=== PATIENT | male | born 1955 | race Caucasian/White ===

== ENCOUNTER 2020-02-27 05:34 | Day surgery (SDC) | payer MEDICARE, BC ==
[2020-02-20 15:05] LABS: BASOPHILS % (AUTO) 0.7 % (0-1); EOSINOPHILS # (AUTO) 0.1 X10'3 (0-0.9); EOSINOPHILS % (AUTO) 2.6 % (0-6); LYMPHOCYTES # (AUTO) 1.2 X10'3 (1.1-4.8); LYMPHOCYTES % (AUTO) 21.8 % (21-51); MEAN CORPUSCULAR HEMOGLOBIN 32.4 PG (27.0-31.0); MEAN CORPUSCULAR HGB CONC 34.6 g/dL (33.0-36.5); MEAN CORPUSCULAR VOLUME 93.7 FL (78-98); MEAN PLATELET VOLUME 5.8 FL (7.4-10.4); MONOCYTES # (AUTO) 0.4 X10'3 (0-0.9); MONOCYTES % (AUTO) 6.7 % (2-12); NEUTROPHILS # (AUTO) 3.9 X10'3 (1.8-7.7); NEUTROPHILS % (AUTO) 68.2 % (42-75); PRE OP HEMATOCRIT 48.4 % (42.0-52.0); PRE OP HEMOGLOBIN 16.7 g/dL (14.0-17.9); PRE OP PLATELET COUNT 165 X10'3 (140-440); RED BLOOD COUNT 5.16 X10'6 (4.70-6.10); RED CELL DISTRIBUTION WIDTH 14.2 % (11.5-14.5)
[2020-02-20 15:17] LABS: ALBUMIN 4.5 G/DL (3.4-5.0); ALBUMIN/GLOBULIN RATIO 1.5 (1.1-1.5); ALKALINE PHOSPHATASE 75 IU/L (46-116); BLOOD UREA NITROGEN 17 MG/DL (7-18); BUN/CREATININE RATIO 16.8 (5.4-32.0); CALCIUM 9.2 MG/DL (8.5-10.1); CHLORIDE 106 MMOL/L (99-107); CREATININE 1.01 MG/DL (0.60-1.10); PRE OP ALT 44 U/L (30-65); PRE OP ANION GAP 11 (8-16); PRE OP AST 26 U/L (10-37); PRE OP BILIRUB, TOTAL 0.5 MG/DL (0.0-1.0); PRE OP GLUCOSE 110 MG/DL (70-104); PRE OP POTASSIUM 3.8 MMOL/L (3.4-5.1); PRE OP SODIUM 141 MMOL/L (135-145); TOTAL CARBON DIOXIDE 24.5 MMOL/L (24-32); TOTAL PROTEIN 7.5 G/DL (6.4-8.2); eGFR 74 ML/MIN
[2020-02-27] VITALS (13 sets, daily range): BP systolic 111–135; BP diastolic 66–81
[~2020-02-27] VITALS: Ht 177.8 cm; Wt 91.0 kg
[~2020-02-27 05:34] MED LIST: ATOR40TA71 PO; FLO0.4C PO; HYDR12.55 PO; RAMI5CAP65 PO; ZOLP10TA5 PO; ceFAZolin 2gm in dextrose, iso 50 ML IV ONE; famotidine 20mg tablet PO ONE; ringers solution, lacted 1,000 ML IV SCH
[2020-02-27] MEDS ORDERED: LIDOcaine 1% (10mg/ml) 2ml vial ONE (06:10)
[2020-02-27] MEDS ORDERED: BUPIVAcaine/PF 2.5 mg/ml (0.25%) 30ml vial ONE (06:44)
[2020-02-27] MEDS ORDERED: LIDOcaine 1% 30ml preserv. free vial ONE (06:44)
[2020-02-27] MEDS ORDERED: midazolam 2 mg/2 ml injection ONE (07:17)
[2020-02-27] MEDS ORDERED: fentaNYL/PF 50MCG/1 ML 2ML syringe ONE (07:17)
[2020-02-27] MEDS ORDERED: propofol inj 20 ML IV ONE (07:18)
[2020-02-27] MEDS ORDERED: LIDOcaine 2% (20mg/ml) 5ml vial ONE (07:18)
[2020-02-27] MEDS ORDERED: ringers solution, lacted 1,000 ML IV SCH (07:21)
[2020-02-27] MEDS ORDERED: ondansetron/PF 4mg/2ml inj IV PRN (07:25)
[2020-02-27] MEDS ORDERED: labetalol 20mg/4ml (5mg/ml) syringe IV PRN (07:25)
[2020-02-27] MEDS ORDERED: fentaNYL/PF 50MCG/1 ML 2ML syringe IV PRN ×2 (07:25)
[2020-02-27] MEDS ORDERED: hydrALAZINE 20mg/ml inj. IV PRN (07:25)
[2020-02-27] MEDS ORDERED: morphine 2 MG/ML inj. syringe IV PRN (07:25)
[2020-02-27] MEDS ORDERED: morphine 4 MG/ML inj SYRINge IV PRN (07:25)
[2020-02-27] MEDS ORDERED: glycopyrrolate 0.2mg/ml inj ONE (07:45)
[2020-02-27] MEDS ORDERED: ondansetron/PF 4mg/2ml inj ONE (07:45)
[2020-02-27] MEDS ORDERED: sevoflurane 250ml liquid IH ONE (07:50)
[2020-02-27] MEDS ORDERED: neostigmine methylsulfate 1 MG/ML 10ml vial ONE (07:50)
[2020-02-27] MEDS ORDERED: dexamethasone sod phosphate 10mg/ml inj ONE (07:50)
[2020-02-27] MEDS ORDERED: rocuronium 10mg/ml inj IV ONE (07:50)
[2020-02-27] MEDS ORDERED: atropine 0.4 mg/ml 20ml vial ONE (08:21)
[2020-02-27] MEDS ORDERED: ketorolac trometh. 30mg/ml inj. ONE (08:28)
[2020-02-27] MEDS ORDERED: acetaminophen 1,000mg/100ml IV 100 ML IV ONE (08:28)
--- NOTE | 2020-02-27 09:15 | NUR ---
Received from OR via [facility], accompanied by Anesthesiologist DR CHAPPELL and report given by Anesthesiologist. PT DROWSY, DENIES PAIN, ABDOMEN W/3 LAP SITES W/BANDAIDES CDI. Addendum: 02/27/20 at 0933 by Keisha Astorga RN Amended: Links added.
[2020-02-27] MEDS: HYDROcodone/acetaminophen 5mg/325mg tablet PO PRN ×2 (10:32→12:40)
--- NOTE | 2020-02-27 11:45 | NUR ---
PT UP AMBULATING, TRYING TO URINATE. NO C/O. Addendum: 02/27/20 at 1146 by Keisha Astorga RN Amended: Links added.
--- NOTE | 2020-02-27 12:15 | NUR ---
PT W/SMALL VOID, SCANNED BLADDER FOR 15 ML OF URINE, PT SENT TO [facility] W/SHILA, RECEIVING RN WILL CALL DR BLANCHARD FOR FURTHER ORDERS. Addendum: 02/27/20 at 1228 by Keisha Astorga RN Amended: Links added.
--- NOTE | 2020-02-27 13:30 | NUR ---
DR BLANCHARD CAME TO SEE PT, OK'D HIM FOR DC. PT WANTS TO GO HOME, STATES HE WILL GO TO ER IN [facility] IF UNABLE TO VOID TONIGHT. PT WAS GIVEN AN ADDTL PAIN PILL PER DR BLANCHARD AND DCD HOME IN STABLE CONDITION, TAKEN TO CAR VIA WC. PIV WAS DCD CATH INTACT.
== END 2020-02-27 13:30 | disposition home or self-care (01) ==
LOC: PAS 05:34
PROVIDERS: ATTEND Surgery
DX: K40.90 Unilateral inguinal hernia, without obstruction or gangrene, not specified as recurrent (principal); I10 Essential (primary) hypertension; E78.5 Hyperlipidemia, unspecified; N40.0 Benign prostatic hyperplasia without lower urinary tract symptoms; G47.30 Sleep apnea, unspecified; Z98.890 Other specified postprocedural states; Z88.2 Allergy status to sulfonamides; Z88.8 Allergy status to other drugs, medicaments and biological substances; Z79.899 Other long term (current) drug therapy; Z11.59 Encounter for screening for other viral diseases; Z87.442 Personal history of urinary calculi; Z96.659 Presence of unspecified artificial knee joint
CPT/HCPCS: 36415; 49650; 80053; 82948; 85025; C1781; J0131; J0461; J1100; J1885; J2001; J2250; J2270; J2405; J2704; J2710; J3010; J3490; J7120; U0003; A4215; A4618